=== PATIENT | female | born 1995 | race Caucasian/White ===

== ENCOUNTER 2016-07-11 12:42 | Emergency (ER) | payer OTHER | END 2016-07-11 13:15 | disposition left against medical advice (07) | LOC: ER 12:42 | DX: S62.304D Unspecified fracture of fourth metacarpal bone, right hand, subsequent encounter for fracture with routine healing (principal); M79.641 Pain in right hand; F17.210 Nicotine dependence, cigarettes, uncomplicated; Z88.0 Allergy status to penicillin; Z88.2 Allergy status to sulfonamides | CPT/HCPCS: 99282 ==